=== PATIENT | female | born 1930 | race Caucasian/White ===

== ENCOUNTER 2017-09-29 18:32 | Inpatient (IN) | payer OTHER, MEDICARE ==
[~2017-09-29] VITALS: Ht 152.4 cm; Wt 62.3 kg
[~2017-09-29 18:32] MED LIST: ASPIR-LOW81 MG PO; CARDURA2 M1 PO; COLACE100 MG PO; COUMADIN2 MG PO; ECOTRIN325 MG PO; FERROUS SULFAT325 MG PO; FORTAMET1000 M1 PO; GABAPENTIN100 MG PO; GLUCOPHAGE1000 MG PO; HYDROCODON-ACE1 EAC7 PO; INDERIDE 40/1 TABLET PO; IPRATROPIUM BRO30 ML BOTH NARES; JANUVIA25 M1 PO; JANUVIA25 MG PO; MAVIK PO; MAVIK4 MG PO; MULTIVITAMIN1 EAC2 PO; NEURONTIN100 MG PO; REQUIP2 MG PO; SIMVASTATIN40 MG PO; STOOL SOFTENER100 MG PO; TRAMADOL HCL50 MG PO; ULTRAM50 MG PO; VITAMIN D31000 UNIT PO
[2017-09-29 20:53] LABS: HEMATOCRIT 37.7 % (36.0-46.0); HEMOGLOBIN 12.9 G/DL (11.9-15.5); MCH 31.5 PG (29.0-34.0); MCHC 34.2 G/DL (30.0-36.0); PLATELET COUNT 205 K/uL (156-360); RBC DIS.WIDTH-CV 13.8 % (11.8-14.6); RBC DIS.WIDTH-SD 46.8 % (39-53); RED BLOOD COUNT 4.09 M/uL (3.80-5.20); WHITE BLOOD COUNT 7.7 K/uL (4.1-10.2)
[2017-09-29 20:57] LABS: MCV 92.2 FL (83-99)
[2017-09-29 21:05] LABS: CHLORIDE 101 mEq/L (99-109); POTASSIUM 4.5 mEq/L (3.7-5.4); SODIUM 138 mEq/L (136-147)
[2017-09-29 21:07] LABS: GLUCOSE 204 mg/dL (70-99)
[2017-09-29 21:10] LABS: CREATININE 0.8 mg/dL (0.6-1.3); GFR ESTIMATE (CALCULATED) > 59 mL/min/
[2017-09-29 21:11] LABS: UREA NITROGEN (BUN) 11 mg/dL (9-23)
[2017-09-29 21:16] LABS: TROP-I INTERPRETATION NEGATIVE; TROPONIN-I 0.03 ng/mL (0.0-0.30)
[2017-09-30] MEDS ORDERED: ELIQUIS2.5 MG PO (00:42)
[2017-09-30] MEDS ORDERED: LISINOPRIL20 MG PO (00:42)
[2017-09-30] MEDS ORDERED: NEURONTIN300 MG PO (00:42)
[2017-09-30] MEDS ORDERED: PERCOCET 7.51 TABLET PO ×2 (00:43→00:44)
[2017-09-30 01:39] LABS: BASE EXCESS 0.5 mEq/L (-3 to +3); BICARBONATE 25.4 mEq/L (22-26); METHEMOGLOBIN 1.5 % (0-1.5); PCO2 41 mm Hg (35-45); PO2 65 mm Hg (80-100)
[2017-09-30 01:40] LABS: COMMENTS - BLOOD GASES A+C+; DEVICE NC; O2 FLOW 2 L/MIN; SITE RR; TOTAL RESP RATE 24 resp/min
[2017-09-30] MEDS ORDERED: STOOL SOFTENER100 M1 PO (01:42)
[2017-09-30] MEDS ORDERED: FIBER THERAPY0.52 GM PO (01:43)
[2017-09-30] MEDS ORDERED: HYDROCODON-ACE1 EAC8 PO (01:53)
[2017-09-30] MEDS ORDERED: METFORMIN HCL1000 MG PO (01:54)
[2017-09-30] MEDS ORDERED: ROPINIROLE HCL2 MG PO (01:54)
[2017-09-30] MEDS ORDERED: GABAPENTIN300 MG PO (01:54)
[2017-09-30 03:25] LABS: TROP-I INTERPRETATION NEGATIVE; TROPONIN-I 0.03 ng/mL (0.0-0.30)
[2017-09-30 04:00] VITALS: BP 141/79
[2017-09-30 06:03] LABS: HEMATOCRIT 39.4 % (36.0-46.0); HEMOGLOBIN 13.3 G/DL (11.9-15.5); MCH 30.8 PG (29.0-34.0); MCHC 33.8 G/DL (30.0-36.0); MCV 91.2 FL (83-99); PLATELET COUNT 231 K/uL (156-360); RED BLOOD COUNT 4.32 M/uL (3.80-5.20); WHITE BLOOD COUNT 9.3 K/uL (4.1-10.2)
[2017-09-30 07:28] LABS: ALBUMIN 3.7 G/DL (3.2-4.8); ALKALINE PHOSPHATASE 66 IU/L (3-129); ALT (GPT) 15 IU/L (3-49); AST (GOT) 35 IU/L (2-34); CHLORIDE 93 MEQ/L (99-109); CREATININE 0.8 MG/DL (0.6-1.3); GFR ESTIMATE (CALCULATED) > 59 mL/min/; GLUCOSE 234 mg/dL (70-99); POTASSIUM 4.6 MEQ/L (3.7-5.4); SODIUM 132 MEQ/L (136-147); TOTAL BILIRUBIN 0.5 MG/DL (0.0-1.0); TOTAL PROTEIN 7.7 G/DL (6.4-8.3); UREA NITROGEN (BUN) 10 mg/dL (9-23)
[2017-09-30 08:42] VITALS: BP 157/77
[2017-09-30 09:43] LABS: TROP-I INTERPRETATION NEGATIVE; TROPONIN-I 0.05 ng/mL (0.0-0.30)
[2017-09-30 12:13] VITALS: BP 147/77
[2017-09-30 16:15] VITALS: BP 117/55
[2017-09-30 20:47] VITALS: BP 131/72
[2017-10-01 00:39] VITALS: BP 136/78
[2017-10-01 04:11] VITALS: BP 113/32
[2017-10-01 06:06] LABS: BASOPHIL (%) 0.2 % (0-1); EOSINOPHIL (%) 0 % (0-5); HEMATOCRIT 36.1 % (36.0-46.0); HEMOGLOBIN 12.2 G/DL (11.9-15.5); IMMATURE GRANULOCYTE (%) 1.7 % (0.0-0.7); LYMPHOCYTE (%) 12.5 % (15-42); LYMPHOCYTE COUNT 1.5 K/uL (1.0-2.8); MCH 30.4 PG (29.0-34.0); MCHC 33.8 G/DL (30.0-36.0); MONOCYTE (%) 7.2 % (3-12); MONOCYTE COUNT 0.9 K/uL (0-0.8); NEUTROPHIL (%) 78.4 % (45-76); NEUTROPHIL COUNT 9.3 K/uL (1.8-6.4); PLATELET COUNT 264 K/uL (156-360); RBC DIS.WIDTH-CV 13.6 % (11.8-14.6); RBC DIS.WIDTH-SD 44.5 % (39-53); RED BLOOD COUNT 4.01 M/uL (3.80-5.20); WHITE BLOOD COUNT 11.8 K/uL (4.1-10.2)
[2017-10-01 06:19] LABS: CHLORIDE 93 MEQ/L (99-109); CREATININE 0.9 MG/DL (0.6-1.3); GFR ESTIMATE (CALCULATED) > 59 mL/min/; GLUCOSE 184 mg/dL (70-99); SODIUM 134 MEQ/L (136-147); UREA NITROGEN (BUN) 19 mg/dL (9-23)
[2017-10-01 06:27] LABS: POTASSIUM 3.4 MEQ/L (3.7-5.4)
[2017-10-01 07:48] VITALS: BP 128/58
[2017-10-01 11:13] VITALS: BP 113/70
[2017-10-01 15:35] VITALS: BP 139/67
[2017-10-01 20:32] VITALS: BP 128/61
[2017-10-02 00:08] VITALS: BP 132/59
[2017-10-02 03:56] VITALS: BP 128/63
[2017-10-02 05:42] LABS: HEMATOCRIT 39.9 % (36.0-46.0); HEMOGLOBIN 13.2 G/DL (11.9-15.5); MCH 30.8 PG (29.0-34.0); MCHC 33.1 G/DL (30.0-36.0); PLATELET COUNT 304 K/uL (156-360); RBC DIS.WIDTH-CV 14.2 % (11.8-14.6); RBC DIS.WIDTH-SD 48.1 % (39-53); RED BLOOD COUNT 4.29 M/uL (3.80-5.20); WHITE BLOOD COUNT 10.1 K/uL (4.1-10.2)
[2017-10-02 05:46] LABS: CREATININE 0.8 MG/DL (0.6-1.3); GFR ESTIMATE (CALCULATED) > 59 mL/min/; UREA NITROGEN (BUN) 19 mg/dL (9-23)
[2017-10-02 05:50] LABS: CHLORIDE 95 MEQ/L (99-109); CREATININE 0.8 MG/DL (0.6-1.3); GFR ESTIMATE (CALCULATED) > 59 mL/min/; GLUCOSE 157 mg/dL (70-99); MAGNESIUM 1.7 mg/dl (1.3-2.7); SODIUM 134 MEQ/L (136-147); UREA NITROGEN (BUN) 19 mg/dL (9-23)
[2017-10-02 05:54] LABS: POTASSIUM 4.3 MEQ/L (3.7-5.4)
[2017-10-02 12:04] VITALS: BP 126/62
[2017-10-02 16:51] VITALS: BP 123/77
[2017-10-02 20:33] VITALS: BP 130/75
[2017-10-03 00:13] VITALS: BP 114/61
[2017-10-03 03:53] VITALS: BP 124/63
[2017-10-03 05:21] LABS: CREATININE 0.8 mg/dL (0.6-1.3); GFR ESTIMATE (CALCULATED) > 59 mL/min/; UREA NITROGEN (BUN) 18 mg/dL (9-23)
[2017-10-03 08:34] VITALS: BP 124/78
[2017-10-03 12:01] VITALS: BP 120/72
[2017-10-03 16:30] VITALS: BP 120/78
[2017-10-03 20:25] VITALS: BP 131/60
[2017-10-04 00:22] VITALS: BP 115/58
[2017-10-04 04:24] VITALS: BP 143/75
[2017-10-04 08:52] VITALS: BP 120/64
[2017-10-04] MEDS ORDERED: OSELTAMIVIR PHO30 MG PO (09:02)
[2017-10-04] MEDS ORDERED: LASIX20 MG PO (09:03)
[2017-10-04] MEDS ORDERED: PREDNISONE10 MG PO (09:04)
[2017-10-04] MEDS ORDERED: VENTOLIN HFA18 GM IH (09:05)
[2017-10-04] MEDS ORDERED: AUGMENTIN875 MG PO (09:20)
[2017-10-04 11:30] VITALS: BP 135/78
== END 2017-10-04 12:55 | disposition home or self-care (01) | DRG 189 ==
LOC: EXP 18:32 → EME 18:32 → EDOF 09-30 02:38 → 3EAST 09-30 02:38 → ENRESERV 09-30 02:39 → 3EAST 09-30 03:25
PROVIDERS: Hospitalist; Internal Medicine; Nurse Practitioner Family
DX: J96.01 Acute respiratory failure with hypoxia (principal); I10 Essential (primary) hypertension; E78.5 Hyperlipidemia, unspecified; J10.1 Influenza due to other identified influenza virus with other respiratory manifestations; J18.9 Pneumonia, unspecified organism; E11.9 Type 2 diabetes mellitus without complications; I48.91 Unspecified atrial fibrillation; E66.9 Obesity, unspecified; G25.81 Restless legs syndrome; J10.00 Influenza due to other identified influenza virus with unspecified type of pneumonia; I25.10 Atherosclerotic heart disease of native coronary artery without angina pectoris; Z83.3 Family history of diabetes mellitus; Z82.49 Family history of ischemic heart disease and other diseases of the circulatory system; Z80.0 Family history of malignant neoplasm of digestive organs; Z82.41 Family history of sudden cardiac death; Z68.34 Body mass index [BMI] 34.0-34.9, adult; Z96.651 Presence of right artificial knee joint
CPT/HCPCS: 36600; 71045; 71046; 71275; 80048; 80053; 82565; 82803; 82948; 83735; 83880; 84484; 84520; 85025; 85027; 87502; 93005; 93306; 94799; 99202; 99281; 99285; J0295; J1815; J1940; J2930; J7050; J7512